=== PATIENT | female | born 1995 | race Caucasian/White ===

== ENCOUNTER 2018-08-24 13:49 | Emergency (ER) | payer OTHER ==
[2018-08-24] MEDS ORDERED: Ondansetron PF 4 MG/2 ML Vial ONE (15:00)
[2018-08-24] MEDS ORDERED: Fentanyl 100 MCG/2 ML VIAL ONE (15:00)
[2018-08-24 15:04] LABS: Bilirubin Negative (Negative); Blood, Urine Negative (Negative); Clarity CLEAR (Clear); Glucose, Urine (Dipstick) Negative (Negative); Leukocyte Trace (Negative); Nitrite Negative (Negative); Protein, Urine (Dipstick) Negative (Neg-Trace); Specific Gravity, Urine 1.006 (1.002-1.036); Urobilinogen 0.2 mg/dL (0.2-1.0)
[2018-08-24 15:05] LABS: Bacteria/HPF None Seen HPF (None Seen); Hyaline Casts/LPF 0-3 HYALINE CAST LPF (0-3 Hyaline); Pathc Cast-AUWi Flag 0.14 (0-2.49); RBC/HPF 0-3 HPF (0-3); Squamous Epithelial 0-3 HPF (0-3); WBC/HPF 0-3 HPF (0-3)
[2018-08-24 15:11] LABS: Medtox Reader # READER 1
[2018-08-24 15:12] LABS: Amphetamine Not Detected (NotDetected); Barbiturates Screen Not Detected (NotDetected); Benzodiazepine Screen Not Detected (NotDetected); Cocaine Metabolite Screen Not Detected (NotDetected); Medtox Control Line Valid? VALID (VALID); Methadone Not Detected (NotDetected); Methamphetamine Not Detected (NotDetected); Opiate Screen Not Detected (NotDetected); Oxycodone Screen Not Detected (NotDetected); Phencyclidine (PCP) Not Detected (NotDetected); THC/Cannabinoid Screen Not Detected (NotDetected); Tricyclic Screen Not Detected (NotDetected)
[2018-08-24 15:44] LABS: #Basophils 0.1 thou/uL (0.0-0.2); #Lymphocytes 1.5 thou/uL (1.20-3.40); #Monocytes 0.6 thou/uL (0.11-0.59); #Neutrophils 6.1 thou/uL (1.40-6.50); %Basophils 0.9 % (0.0-1.0); %Eosinophils 0.5 % (0.0-10.0); %Lymphocytes 17.9 % (21.0-51.0); %Monocytes 7.1 % (0.0-10.0); %Neutrophils 73.6 % (42.0-75.0); Hemoglobin 13.6 g/dL (12.0-16.0); Mean Corpuscular Hemoglobin 29.9 pg (27.0-31.0); Mean Corpuscular Volume 90.3 fL (78.0-98.0); Mean Platelet Volume 7.6 fL (7.4-10.4); Platelet Count 268 thou/uL (130-400); Red Blood Cell (RBC) Count 4.54 mill/uL (4.20-5.40); White Blood Cell (WBC) Count 8.2 thou/uL (4.8-10.8)
[2018-08-24 15:48] LABS: BHCG - Serum Negative (NEGATIVE); Pregs Control Background? CLEAR/WHITE (CLR/WHITE); Pregs Control Bar Appear? YES (CONTROL BAR)
--- NOTE | 2018-08-24 16:00 | CT ---
CT OF THE BRAIN WITHOUT CONTRAST: Date: 08/24/18 COMPARISON: None. HISTORY: Syncope and head trauma. Subjective fever. TECHNIQUE: Multiple contiguous axial images were obtained in a CT of the brain without contrast. FINDINGS: The brain is normal in morphology and attenuation without focal lesions or confluent areas of infarct ion. There is no evidence of hydrocephalus, intracranial hemorrhage, or extra-axial fluid collection. The calvarium and overlying soft tissues are unremarkable. The visualized paranasal sinuses and masto id air cells are well aerated. IMPRESSION: No evidence of acute intracranial abnormality. POS: [facility]
--- NOTE | 2018-08-24 16:03 | CT ---
CT FACE WITHOUT CONTRAST: Date: 08/24/18 COMPARISON: None. HISTORY: Syncope with facial trauma and head trauma. TECHNIQUE: Multiple contiguous axial images were obtained in a CT of the face without contrast. Sagittal and cor onal reformats were performed. FINDINGS: Minimal facial soft tissue swelling is seen. The paranasal sinuses are well aerated without opacifica tion or mucosal thickening. No facial fractures are identified. The globes and retrobulbar soft tissues are unremarkable. IMPRESSION: No evidence of facial fracture. POS: [facility]
[2018-08-24 16:04] LABS: ALT (SGPT) 14 U/L (8-55); AST (SGOT) 19 U/L (5-34); Albumin 4.6 g/dL (3.5-5.0); Alkaline Phosphatase 69 U/L (40-150); Anion Gap 11 mmol/L (10-20); BUN (Urea Nitrogen) 12 mg/dL (7.0-18.7); Bilirubin, Total 0.5 mg/dL (0.2-1.2); CK (CPK) 101 U/L (29-168); Calc. Creatinine Clearance 0 mL/min (70-130); Calcium 9.4 mg/dL (7.8-10.44); Carbon Dioxide 28 mmol/L (22-29); Chloride 104 mmol/L (98-107); Estimated GFR-MDRD 83; Glucose 91 mg/dL (70-105); Lipase 25 U/L (8-78); Potassium 3.8 mmol/L (3.5-5.1); Protein, Total 7.6 g/dL (6.0-8.3); Sodium 139 mmol/L (136-145)
--- NOTE | 2018-08-24 16:36 | RAD ---
CHEST ONE VIEW: Comparison: None. History: Altered mental status. FINDINGS: Normal cardiac silhouette. The pulmonary vessels and hilum are normal. Costophrenic angles are clear. No masses or consolidation. No pneumothorax or osseous abnormalities. IMPRESSION: No acute cardiopulmonary process. POS: [facility]
[2018-08-24] MEDS ORDERED: Ketorolac Tromethamine 30 MG/ML VIAL ONE (17:09)
[2018-08-24] MEDS ORDERED: Metoclopramide HCl 10 MG/2 ML VIAL ONE (17:09)
--- NOTE | 2018-08-27 11:58 | EKG ---
Test Reason : Blood Pressure : / mmHG Vent. Rate : 076 BPM Atrial Rate : 076 BPM P-R Int : 112 ms QRS Dur : 082 ms QT Int : 376 ms P-R-T Axes : -02 079 035 degrees QTc Int : 423 ms Normal sinus rhythm Normal ECG Confirmed by ADILSON KULKARNI, MARCOS ([id number]), acquisition editor EVERTON COOK ([id number]) on 08/27/2018 11:57:52 AM Referred By: Confirmed By:MARCOS DE ANDA MD
== END 2018-08-24 17:26 | disposition home or self-care (01) ==
LOC: ERS 13:49
DX: S06.0X0A Concussion without loss of consciousness, initial encounter (principal); S00.83XA Contusion of other part of head, initial encounter; E86.0 Dehydration; W19.XXXA Unspecified fall, initial encounter
CPT/HCPCS: 70450; 70486; 71045; 80053; 80306; 81003; 81015; 82550; 83690; 84146; 84703; 85025; 93005; 96361; 96374; 96375; J1885; J2405; J2765; J3010